=== PATIENT | female | born 1930 | race Caucasian/White ===

== ENCOUNTER 2017-02-08 19:08 | Emergency (ER) | payer MEDICARE ==
[2017-02-08 19:09] VITALS: O2SAT 99
[2017-02-08 19:26] LABS: AUTOMATED NEUTROPHIL # 6.3 TH/MM3 (1.8-7.7); BASOPHIL # 0.1 TH/MM3 (0-0.2); BASOPHIL % 0.6 % (0.0-2.0); EOSINOPHIL # 0.1 TH/MM3 (0-0.4); EOSINOPHIL % 1.5 % (0.0-4.0); HEMOGLOBIN 13.8 GM/DL (11.6-15.3); LYMPHOCYTE # 2.5 TH/MM3 (1.0-4.8); MEAN CORPUSCULAR HGB CONC 33.7 % (32.0-36.0); MONO % 6.9 % (0.0-8.0); MONOCYTE # 0.7 TH/MM3 (0-0.9); PLATELET COUNT 190 TH/MM3 (150-450); RED CELL DISTRIBUTION WIDTH 14.7 % (11.6-17.2); WHITE BLOOD COUNT 9.7 TH/MM3 (4.0-11.0)
--- NOTE | 2017-02-08 19:32 | RADRPT ---
EXAM DATE/TIME: 02/08/2017 19:20 [facility] COMPARISON: No previous studies available for comparison. INDICATIONS : Trauma alert; fall. RADIATION DOSE: 36.08 CTDIvol (mGy) MEDICAL HISTORY : Non-responsive. SURGICAL HISTORY : Non-responsive. ENCOUNTER: Initial ACUITY: 1 day PAIN SCALE: Non-responsive LOCATION: cranial TECHNIQUE: Multiple contiguous axial images were obtained of the head. Using automated exposure control and adj ustment of the mA and/or kV according to patient size, radiation dose was kept as low as reasonably a chievable to obtain optimal diagnostic quality images. DICOM format image data is available electro nically for review and comparison. FINDINGS: There is right periorbital soft tissue swelling. No intracranial mass, hemorrhage or shift. No hydroc ephalus. Chronic white matter ischemic changes present. CONCLUSION: 1. Right periorbital soft tissue swelling. No acute intracranial abnormalities. Herve Campbell MD on February 08, 2017 at 19:28 Board Certified Radiologist. This report was verified electronically.
--- NOTE | 2017-02-08 19:34 | PD ---
HPI Chief Complaint: Trauma (Alert) Time Seen by Provider: 19:14 Travel History International Travel<30 days: No Contact w/Intl Traveler<30days: No History of Present Illness HPI The patient is an 78 year female who is name is presents to the emergency department for evaluation after a fall from wheelchair. According to EMS she is a [facility] of a [facility] and is normally talkative, she fell out of her wheelchair today and initially was a GCS of 3 and seen for bystanders and a GCS of 94 EMS. EMS stated that they had to stimulate her physically multiple times to jar her back from near comatose state. EMS states that she is not on any blood thinners. On arrival patient is GCS of 14 losing 1 point for confusion. [facility] Past Medical History Narrative Medical Dementia Past Surgical History Narrative Surgical Unknown Family History Narrative Family History Unknown Social History Narrative Social History Unknown Tobacco Use: No Allergies-Medications (Allergen,Severity, Reaction): Coded Allergies: simvastatin (Verified Allergy, Mild, 02/08/17) iodine (Verified Allergy, Unknown, 02/08/17) Review of Systems ROS Limitations: Altered Mental Status Physical Exam Narrative GENERAL: Well-developed well-nourished, abrasion/laceration to the right eyebrow. SKIN: Focused skin assessment warm/dry. HEAD: No Battles signs no raccoons eyes. Normocephalic. EYES: Pupils equal and round. No scleral icterus. No injection or drainage. ENT: No nasal bleeding or discharge. Mucous membranes pink and moist. NECK: Trachea midline. No JVD. CARDIOVASCULAR: Regular rate and rhythm. No murmur appreciated. RESPIRATORY: No accessory muscle use. Clear to auscultation. Breath sounds equal bilaterally. GASTROINTESTINAL: Abdomen soft, non-tender, nondistended. Hepatic and splenic margins not palpable. MUSCULOSKELETAL: No obvious deformities. No clubbing. No cyanosis. No edema. NEUROLOGICAL: Awake and alert. Not oriented. GCS of 14. Follows commands in all 4 extremities. Cranial nerve exam limited by patient cooperation. . Data Data Last Documented VS Vital Signs Date Time Temp Pulse Resp B/P (MAP) Pulse Ox O2 Delivery O2 Flow Rate FiO2 02/09/17 01:29 87 18 138/78 (98) 95 Room Air 3.00 Orders Orders I-Stat Profile (02/08/17 19:14) I-Stat Creatinine (02/08/17 19:14) Complete Blood Count With Diff (02/08/17 19:14) Prothrombin Time / Inr (Pt) (02/08/17 19:14) Act Partial Throm Time (Ptt) (02/08/17 19:14) Type And Screen (02/08/17 19:14) Ct Brain W/O Iv Contrast(Rout) (02/08/17 19:14) Ct Cerv Spine W/O Contrast (02/08/17 19:14) Ct Facial Bones W/O Iv Cont (02/08/17 19:14) Iv Access Insert/Monitor (02/08/17 19:14) Ecg Monitoring (02/08/17 19:14) Oximetry (02/08/17 19:14) Oxygen Administration (02/08/17 19:14) Chest, Single Ap (02/08/17 ) Pelvis, Ap Only (Routine) (02/08/17 ) Electrocardiogram (02/08/17 18:58) Lidocai-Epi 1%-1:100,000 Inj (Xylocaine- (02/08/17 20:45) Ed Discharge Order (02/08/17 21:40) Labs Laboratory Tests Test 02/08/17 19:15 White Blood Count 9.7 TH/MM3 Red Blood Count 4.60 MIL/MM3 Hemoglobin 13.8 GM/DL Bedside Hemoglobin 14.3 G/DL Hematocrit 41.0 % Bedside Hematocrit 42.0 % Mean Corpuscular Volume 89.0 FL Mean Corpuscular Hemoglobin 30.0 PG Mean Corpuscular Hemoglobin Concent 33.7 % Red Cell Distribution Width 14.7 % Platelet Count 190 TH/MM3 Mean Platelet Volume 9.0 FL Neutrophils (%) (Auto) 65.0 % Lymphocytes (%) (Auto) 26.0 % Monocytes (%) (Auto) 6.9 % Eosinophils (%) (Auto) 1.5 % Basophils (%) (Auto) 0.6 % Neutrophils # (Auto) 6.3 TH/MM3 Lymphocytes # (Auto) 2.5 TH/MM3 Monocytes # (Auto) 0.7 TH/MM3 Eosinophils # (Auto) 0.1 TH/MM3 Basophils # (Auto) 0.1 TH/MM3 CBC Comment DIFF FINAL Differential Comment Prothrombin Time 10.5 SEC Prothromb Time International Ratio 1.0 RATIO Activated Partial Thromboplast Time 25.9 SEC Bedside Sodium 140 MMOL/L Bedside Potassium 3.9 MMOL/L Bedside Chloride 99 MMOL/L Bedside Blood Urea Nitrogen 15 MG/DL Bedside Creatinine 0.8 MG/DL Bedside Glucose 122 MG/DL [facility] Medical Decision Making Medical Screen Exam Complete: Yes Emergency Medical Condition: Yes Differential Diagnosis Fall, closed head injury, and cranial hemorrhage, neck injury. Narrative Course Patient roomed emergency department, trauma alert 1 while being transferred, downgraded to level II alert on arrival. Patient CT head and C-spine negative, c-collar removed, laceration repaired eyebrow. Patient was observed for several hours in the emergency department and this had no deterioration in mental status, discussion with charge nurse who discussed with [facility] staff the patient is apparently at or close to her neurologic baseline which is that she "likes to play possum" is confused at baseline but does follow commands. His neurologic exam that his been demonstrated on her here in the emergency department. Awaiting a ride home she was observed for several more hours in the emergency department and had no further deterioration. She is stable for discharge. The patient was discussed with Dr. Del Valle. Diagnosis Primary Impression: Closed head injury Additional Impression: Facial laceration Additional Instructions: Return to the emergency department in 5-7 days for suture removal or follow-up with the primary care physician for same. Recommend ice and hematoma and face. Buccal to return to a permanent any time for repeat evaluation. CT head face and C-spine were negative for acute injury. Disposition: 03 DISCHARGE TO SNF Condition: Stable Ravi Early MD Feb 08, 2017 19:34
--- NOTE | 2017-02-08 19:41 | RADRPT ---
EXAM DATE/TIME: 02/08/2017 19:20 [facility] COMPARISON: No previous studies available for comparison. INDICATIONS : Trauma alert; fall. RADIATION DOSE: 20.29 CTDIvol (mGy) MEDICAL HISTORY : Non-responsive. SURGICAL HISTORY : Non-responsive. ENCOUNTER: Initial ACUITY: 1 day PAIN SCALE: Non-responsive LOCATION: Bilateral neck TECHNIQUE: Volumetric scanning of the cervical spine was performed. Multiplanar reconstructions in the sagittal, coronal and oblique axial planes were performed. Using automated exposure control and adjustment o f the mA and/or kV according to patient size, radiation dose was kept as low as reasonably achievable to obtain optimal diagnostic quality images. DICOM format image data is available electronically f or review and comparison. FINDINGS: No acute fracture identified. Moderate to advanced facet arthropathy. Grade 1 anterolisthesis of L3 o n L4. No prevertebral soft tissue swelling. CONCLUSION: 1. No acute fracture. Grade 1 anterolisthesis of C3 on C4 likely degenerative. No significant central canal stenosis. Herve Campbell MD on February 08, 2017 at 19:37 Board Certified Radiologist. This report was verified electronically.
--- NOTE | 2017-02-08 19:42 | RADRPT ---
EXAM DATE/TIME: 02/08/2017 19:11 [facility] COMPARISON: No previous studies available for comparison. INDICATIONS : Trauma alert. Fell out of wheelchair today MEDICAL HISTORY : Unobtainable SURGICAL HISTORY : Unobtainable ENCOUNTER: Initial ACUITY: 1 day PAIN SCORE: Non-responsive. LOCATION: Bilateral chest FINDINGS: A single view of the chest demonstrates the lungs to be symmetrically aerated without evidence of mas s, infiltrate or effusion. The cardiomediastinal contours are unremarkable. Osseous structures are intact. CONCLUSION: 1. No acute findings. Herve Campbell MD on February 08, 2017 at 19:40 Board Certified Radiologist. This report was verified electronically.
--- NOTE | 2017-02-08 19:43 | RADRPT ---
EXAM DATE/TIME: 02/08/2017 19:11 [facility] COMPARISON: No previous studies available for comparison. INDICATIONS : Trauma alert. Fell out of wheelchair today MEDICAL HISTORY : Unobtainable SURGICAL HISTORY : Unotainable ENCOUNTER: Initial ACUITY: 1 day PAIN SCORE: Non-responsive. LOCATION: Pelvis FINDINGS: Right hip replacement. No acute fracture or dislocation. CONCLUSION: 1. No acute findings. Herve Campbell MD on February 08, 2017 at 19:40 Board Certified Radiologist. This report was verified electronically.
--- NOTE | 2017-02-08 19:45 | RADRPT ---
EXAM DATE/TIME: 02/08/2017 19:20 [facility] COMPARISON: No previous studies available for comparison. INDICATIONS : Trauma alert; fall. RADIATION DOSE: 37.69 CTDIvol (mGy) MEDICAL HISTORY : Non-responsive. SURGICAL HISTORY : Non-responsive. ENCOUNTER: Initial ACUITY: 1 day PAIN SCORE: Non-responsive LOCATION: Bilateral facial TECHNIQUE: Volumetric scanning of the facial bones was performed. Using automated exposure control and adjustme nt of the mA and/or kV according to patient size, radiation dose was kept as low as reasonably achiev able to obtain optimal diagnostic quality images. DICOM format image data is available electronicall y for review and comparison. FINDINGS: Right periorbital soft tissue swelling. No facial bone fracture. Paranasal sinuses are clear. Globes intact. CONCLUSION: 1. Right periorbital soft tissue swelling. No fracture identified. Herve Campbell MD on February 08, 2017 at 19:41 Board Certified Radiologist. This report was verified electronically.
[2017-02-08 19:47] LABS: PROTHROMBIN TIME - PATIENT 10.5 SEC (9.8-11.6)
[2017-02-08] MEDS ORDERED: LIDOCAINE 1%/EPINEPHrine 1:100,000 SOLN 20 ML VIAL INFIL ONE (20:45)
--- NOTE | 2017-02-08 20:50 | PD ---
Physical Exam Date Seen by Provider: Feb 08, 2017 Time Seen by Provider: 20:47 Narrative I was asked by Dr. Early to repair laceration to patient's right forehead. Please see his documentation for full history and physical. Data Data Orders Orders I-Stat Profile (02/08/17 19:14) I-Stat Creatinine (02/08/17 19:14) Complete Blood Count With Diff (02/08/17 19:14) Prothrombin Time / Inr (Pt) (02/08/17 19:14) Act Partial Throm Time (Ptt) (02/08/17 19:14) Type And Screen (02/08/17 19:14) Ct Brain W/O Iv Contrast(Rout) (02/08/17 19:14) Ct Cerv Spine W/O Contrast (02/08/17 19:14) Ct Facial Bones W/O Iv Cont (02/08/17 19:14) Iv Access Insert/Monitor (02/08/17 19:14) Ecg Monitoring (02/08/17 19:14) Oximetry (02/08/17 19:14) Oxygen Administration (02/08/17 19:14) Chest, Single Ap (02/08/17 ) Pelvis, Ap Only (Routine) (02/08/17 ) Electrocardiogram (02/08/17 18:58) Lidocai-Epi 1%-1:100,000 Inj (Xylocaine- (02/08/17 20:45) Labs Laboratory Tests Test 02/08/17 19:15 White Blood Count 9.7 TH/MM3 Red Blood Count 4.60 MIL/MM3 Hemoglobin 13.8 GM/DL Bedside Hemoglobin 14.3 G/DL Hematocrit 41.0 % Bedside Hematocrit 42.0 % Mean Corpuscular Volume 89.0 FL Mean Corpuscular Hemoglobin 30.0 PG Mean Corpuscular Hemoglobin Concent 33.7 % Red Cell Distribution Width 14.7 % Platelet Count 190 TH/MM3 Mean Platelet Volume 9.0 FL Neutrophils (%) (Auto) 65.0 % Lymphocytes (%) (Auto) 26.0 % Monocytes (%) (Auto) 6.9 % Eosinophils (%) (Auto) 1.5 % Basophils (%) (Auto) 0.6 % Neutrophils # (Auto) 6.3 TH/MM3 Lymphocytes # (Auto) 2.5 TH/MM3 Monocytes # (Auto) 0.7 TH/MM3 Eosinophils # (Auto) 0.1 TH/MM3 Basophils # (Auto) 0.1 TH/MM3 CBC Comment DIFF FINAL Differential Comment Prothrombin Time 10.5 SEC Prothromb Time International Ratio 1.0 RATIO Activated Partial Thromboplast Time 25.9 SEC Bedside Sodium 140 MMOL/L Bedside Potassium 3.9 MMOL/L Bedside Chloride 99 MMOL/L Bedside Blood Urea Nitrogen 15 MG/DL Bedside Creatinine 0.8 MG/DL Bedside Glucose 122 MG/DL MDM Supervised Visit with KD: No Procedures Procedure Narrative LACERATION LOCATION: Right forehead LENGTH: 2 cm NUMBER OF STITCHES/DUNIA: 5 simple interrupted sutures REPAIR: The area of the laceration was prepped with Betadine and sterilely draped. The laceration was infiltrated with 1% lidocaine with epinephrine. The wound was copiously irrigated and explored without evidence of foreign body, tendon injury or neurovascular injury. The wound was closed using 5-0 Prolene. This was a single layer repair. A sterile dressing was applied. The patient was advised to keep the dressing clean and dry. Patient tolerated the procedure well. Brenda Nice Feb 08, 2017 20:49
[2017-02-09 01:29] VITALS: BP 138/78; PULSE 87; RESP 18; O2SAT 95
[2017-02-09 08:11] VITALS: BP 155/73
--- NOTE | 2017-02-09 15:44 | EKG ---
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 Clinical correlation will be important. DOCTOR: Asha Orr Interpretating Date/Time 02/09/2017 15:42:08
== END 2017-02-09 08:27 ==
LOC: NEPI 19:08 → EDBD 19:08 → NEPE 02-09 08:27
DX: S01.81XA Laceration without foreign body of other part of head, initial encounter (principal); S09.90XA Unspecified injury of head, initial encounter; F03.90 Unspecified dementia, unspecified severity, without behavioral disturbance, psychotic disturbance, mood disturbance, and anxiety; I51.7 Cardiomegaly; R94.31 Abnormal electrocardiogram [ECG] [EKG]; W05.0XXA Fall from non-moving wheelchair, initial encounter
CPT/HCPCS: 12011; 70450; 70486; 71010; 72125; 72170; 82435; 82565; 82947; 84132; 84295; 84520; 85025; 85610; 85730; 86850; 86900; 86901; 90471; 93005; 99285; G0390; 99291